=== PATIENT | female | born 1970 | race Caucasian/White ===

== ENCOUNTER 2017-02-04 11:26 | Emergency (ER) | payer BC ==
[2017-02-04] MEDS ORDERED: NS 0.9% 1000 ML* 1,000 ML IV ONE (12:29)
--- NOTE | 2017-02-04 12:35 | ED ---
Abdominal Pain/Female - HPI Summary HPI Summary: Pt here w/ LUQ/LT flank pain x 3 days. Noticed LUQ pain that felt like a "stitch " in her side while walking around [place]. Took a tylenol that night and slept well. Following day, pain remained - no position is comfortable nor worse. Could not sleep well last night d/t pain here. Was doing yard work last week but no acute injury or overuse otherwise. Drinks alot of diet coke. Recent GI bug w/ copious diarrhea x 3 days last week. Last BM yesterday - normal for pt. - History of Current Complaint Chief Complaint: EDGeneral Stated Complaint: LT RIB/BACK PAIN Time Seen by Provider: 02/04/17 11:47 Hx Obtained From: Patient, Family/Prosthetic Technician - Pain Intensity: 6 Allergies/Adverse Reactions: Allergies Allergy/AdvReac Type Severity Reaction Status Date / Time No Known Allergies Allergy Verified 02/04/17 12:36 PMH/Surg Hx/FS Hx/Imm Hx Previously Healthy: Yes Endocrine/Hematology History: Denies: Hx Anticoagulant Therapy, Hx Blood Disorders Cardiovascular History: Denies: Hx Cardiac Arrest, Hx Coronary Artery Disease, Hx Deep Vein Thrombosis, Hx Hypertension, Hx Myocardial Infarction Respiratory History: Denies: Hx Asthma, Hx Chronic Obstructive Pulmonary Disease (COPD), Hx Pneumonia, Hx Pulmonary Embolism GI History: Reports: Hx Gastroesophageal Reflux Disease - gastritis - took PPI and sx resolved Infectious Disease History: No Infectious Disease History: Denies: Traveled Outside the [place] in Last 30 Days - Family History Known Family History: Positive: Cardiac Disease - sister w/ UT in her 40's - Social History Occupation: Unemployed Lives: With Family Alcohol Use: Weekly Hx Substance Use: No Substance Use Type: Reports: None Hx Tobacco Use: No Smoking Status (MU): Never Smoked Tobacco Review of Systems Constitutional: Negative Negative: Fever, Chills, Fatigue ENT: Negative Negative: Dental Pain Cardiovascular: Negative Negative: Palpitations, Chest Pain Respiratory: Negative Negative: Shortness Of Breath, Cough Gastrointestinal: Other - denies hematochezia, dark tarry stools Positive: Abdominal Pain - see HPI. Negative: Vomiting, Diarrhea, Nausea Positive: see HPI, flank pain, hematuria - reported at prior to arrival. Negative: burning, dysuria, discharge, frequency, incontinence, pain, urgency Musculoskeletal: Other - back pain as in HPI Skin: Negative Negative: Rash, Bruising Neurological: Negative Psychological: Normal All Other Systems Reviewed And Are Negative: Yes Physical Exam Triage Information Reviewed: Yes Vital Signs On Initial Exam: Initial Vitals Temp Pulse Resp BP Pulse Ox 97.8 F 98 20 131/64 98 02/04/17 11:29 02/04/17 11:29 02/04/17 11:29 02/04/17 11:29 02/04/17 11:29 Vital Signs Reviewed: Yes Appearance: Positive: Well-Appearing, No Pain Distress, Obese Skin: Positive: Warm, Dry - no erythema, no lesions, no ecchymosis over affected area Head/Face: Positive: Normal Head/Face Inspection Eyes: Positive: Normal, EOMI, Conjunctiva Clear - anicteric sclera ENT: Positive: Hearing grossly normal, Pharynx normal - mucosa moist Neck: Positive: Supple - no gross thyromegaly, Nontender Respiratory/Lung Sounds: Positive: Clear to Auscultation, Breath Sounds Present. Negative: Rales, Rhonchi, Wheezes Cardiovascular: Positive: Normal, RRR, Pulses are Symmetrical in both Upper and Lower Extremities, S1, S2. Negative: Murmur, Rub, Leg Edema Left, Leg Edema Right Abdomen Description: Positive: No Organomegaly, Soft, CVA Tenderness (L) - mild , Other: - LUQ palpation refers pain to Lt flank. Negative: CVA Tenderness (R) , Distended, Hernia @ Bowel Sounds: Positive: Hypoactive Pelvic Exam: Positive: other - deferred Musculoskeletal: Positive: Normal, Strength/ROM Intact. Negative: Pain @ - spinous pp and paracervical mm are NTTP Neurological: Positive: Normal, Sensory/Motor Intact, Alert, Oriented to Person Place, Time, CN Intact II-III Psychiatric: Positive: Normal - [place] Coma Scale Coma Scale Total: 15 Diagnostics - Vital Signs Vital Signs Temp Pulse Resp BP Pulse Ox 02/04/17 11:29 97.8 F 98 20 131/64 98 - Laboratory Result Diagrams: 02/04/17 12:44 02/04/17 12:44 Lab Statement: Any lab studies that have been ordered have been reviewed, and results considered in the medical decision making process. Re-Evaluation - Re-Evaluation First Eval Change: Improved Abdominal Pain Fem Course/Dx - Course Course Of Treatment: Pt presents w/ "pain under Lt rib";LUQ; Lt flank x 3 days. No alleviating nor exacerbating factors - progressively worsening. Denies gretchen chest pain, SOB, HUYNH, cough, fatigue, jaw/arm/neck pain, sweats. Labs reveal eosinophelia. She did report a recent h/o diarrhea x 3 days but this had resolved and she now has formed stools - no abdominal pain outside of LUQ region - eating and drinking well w/o pain. She did not report new foods, water sources, meds, etc and no rash, puritis, sneezing, swelling or throat pain/ swelling. She also does not report nightsweats, weight loss or fatigue. CT ab/ pelvis was ordered to assess for possible renal lithiasis as she has hemturia on U/A - CT is w/o acute pathology but does reveal pleural effusion - discussed CT findings w/ Dr. Vicente - does not feel any findings correlate w/ clinical sx. An ECG and further labs are added to assess for CHF, PE, UT - she is found to have an elevated D-dimer and so CTA of chest is evaluated. This is neg for PE , pneumonia, occult malignant findings. Discussed case with Dr. Pete who agrees all ED avenues have been exhausted and pt may be d/c'd w/ close f/u outpt. Education with pt and about f/u care as they are new to the area - discussed providers and importance of f/u. Also educated on danger s/sx of when to return to ED. 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 NOTE: reviewed w/ pt she does have an incidental findings of Rt ovarian cyst and will f/u w/ PCP. - Diagnoses Provider Diagnoses: Pleural effusion Discharge - Discharge Plan Condition: Stable Disposition: HOME Prescriptions: Cyclobenzaprine TAB* [Flexeril 10 MG TAB*] 10 mg PO TID PRN #15 tab PRN Reason: Pain Patient Education Materials: Pleural Effusion (ED) Referrals: [facility] REFERRAL [Outside] No Primary Care Phys,NOPCP [Primary Care Provider] - Additional Instructions: Rest Deep breathing Try NSAID and muscle relaxers Follow-up with PCP in 1 week - call tomorrow to schedule an appointment *If you develop fever, chills, cough, shortness of breath, worsening back or abdomen pain, vomiting, chest pain, return to ED You may also have early onset of shingles - watch for rash along side - if this presents, seek medical attention [facility]AN for anti-viral medication
[2017-02-04 13:03] LABS: Hematocrit 39 % (35-47); Hemoglobin 13.1 g/dl (12.0-16.0); Mean Corpuscular HGB Conc 34 g/dl (31-36); Mean Corpuscular Hemoglobin 29 pg (27-31); Mean Corpuscular Volume 88 fL (80-97); Mean Platelet Volume 7 um3 (7.4-10.4); Red Blood Count 4.47 10^6/ul (4.0-5.4); Red Cell Distribution Width 14 % (10.5-15)
[2017-02-04 13:18] LABS: ALT 33 U/L (7-52); AST 18 U/L (13-39); Alkaline Phosphatase 77 U/L (34-104); Anion Gap 5 mmol/L (2-11); BUN/Creatinine Ratio 17.3 (8-20); Blood Urea Nitrogen 9 mg/dL (6-24); C Reactive Protein 60.49 mg/L (< 5.00); CO2 Carbon Dioxide 27 mmol/L (22-32); Calcium 9.5 mg/dL (8.6-10.3); Chloride 104 mmol/L (101-111); EGFR African American 162.6 (>60); EGFR Non-African American 126.4 (>60); Globulin 2.8 g/dL (2-4); Glucose 94 mg/dL (70-100); Lipase < 10 U/L (11.0-82.0); Potassium 3.8 mmol/L (3.5-5.0); Sodium 136 mmol/L (133-145); Total Protein 6.8 g/dL (6.4-8.9)
--- NOTE | 2017-02-04 13:36 | RAD ---
CLINICAL HISTORY: Left flank pain COMPARISON: None TECHNIQUE: Noncontrast CT examination of the abdomen and pelvis from the lung bases through the initial tuberosities. FINDINGS: VISUALIZED LUNG BASES: There is a small left pleural effusion. There is a very small amount of right lung base pleural thickening. Lungs are otherwise grossly clear. ABDOMEN AND PELVIS: Evaluation of the solid organs and vasculature is limited without intravenous contrast. The liver, spleen, pancreas and adrenal glands are grossly normal in appearance. The gallbladder is normal. The kidneys are normal in appearance without focal mass, calcification or signs of hydronephrosis. Evaluation of the gastrointestinal tract is limited without oral contrast. The small and large bowel are not distended.The patient's normal appendix is identified in the right lower quadrant with gas in the lumen measuring just under 6 mm in diameter (coronal image 32 and axial image 131).. There is no gross retroperitoneal or mesenteric lymphadenopathy. An intrauterine device is noted at the fundal height endometrium. At the right adnexa there is an approximately 2.8 cm fluid density structure most consistent with an ovary in a woman of this age. Incidentally noted is a left ovarian vein measuring 7 mm in diameter (image 108) the right ovarian vein is an appropriately sized 5 mm. The abdominal aorta and iliac arteries are normal in course and diameter. Degenerative changes include multilevel loss of intervertebral disc height involving the lower thoracic and lumbar spine.There are no sinister bone lesions. IMPRESSION: 1. No renal calculi or signs of obstructive uropathy. 2. Grossly normal appearing gastrointestinal tract within the limitations of a noncontrast enhanced CT examination. 3. 2.8 cm fluid density structure at the right adnexa most consistent with an ovarian follicle in a woman of this age. If clinically warranted this can be confirmed with pelvic ultrasound. 4. Small left pleural effusion of uncertain etiology.
[2017-02-04] MEDS ORDERED: Morphine INJ* 4 MG/ML 1 ML CARPUJECT IV ONE (14:45)
[2017-02-04] MEDS ORDERED: Ondansetron INJ* 2 MG/ML VIAL IV ONE (14:45)
[2017-02-04] MEDS ORDERED: Aspirin Low Dose CHEW TAB* 81 MG PO ONE (15:07)
[2017-02-04] MEDS ORDERED: Iohexol 350* (CONTRAST) 500 ML MDV IV ONE (16:32)
--- NOTE | 2017-02-04 16:58 | RAD ---
HISTORY: Left pleural effusion, chest pain, elevated d-dimer COMPARISONS: None TECHNIQUE: Multiple contiguous axial CT scans of the chest were obtained after the administration of nonionic intravenous contrast, timed to the pulmonary arterial phase of contrast enhancement.. Coronal and sagittal multiplanar reformations are also submitted for review. FINDINGS: NECK AND THYROID: The lower neck and thyroid are unremarkable. CHEST WALL: There is no lower cervical, axillary, or supraclavicular lymphadenopathy by size criteria. HEART AND PERICARDIUM: The heart is unremarkable. AORTA AND PULMONARY VASCULATURE: There is no pulmonary arterial filling defect to suggest pulmonary embolism. There is no linear filling defect within the aorta to suggest aortic dissection. MEDIASTINUM: There is no mediastinal lymphadenopathy by size criteria. OMAR: There is no hilar lymphadenopathy by size criteria. AIRWAY AND ESOPHAGUS: The airway is unremarkable, without endobronchial filling defect. The esophagus is grossly normal. LUNG PARENCHYMA: There is dependent atelectasis bilaterally. PLEURA: There are small bilateral pleural effusions. UPPER ABDOMEN: The upper abdomen is unremarkable. BONES AND SOFT TISSUES: Mild degenerative changes are noted OTHER: None. IMPRESSION: 1. NO PULMONARY ARTERIAL FILLING DEFECT TO SUGGEST PULMONARY EMBOLISM. 2. SMALL BILATERAL PLEURAL EFFUSIONS WITH DEPENDENT ATELECTASIS BILATERALLY.
[2017-02-04 18:38] LABS: Urine Bacteria Absent (Absent); Urine Bilirubin Negative (Negative); Urine Glucose Negative (Negative); Urine Nitrite Negative (Negative)
[2017-02-04] MEDS ORDERED: Cyclobenzaprine TAB* 10 MG PO ONE (19:05)
[2017-02-04 20:18] VITALS: BP 115/48
== END 2017-02-04 19:05 | disposition home or self-care (01) ==
LOC: ED 11:26
DX: J90 Pleural effusion, not elsewhere classified (principal); R10.84 Generalized abdominal pain; R31.9 Hematuria, unspecified
CPT/HCPCS: 36415; 71275; 74176; 80053; 81003; 81015; 83605; 83690; 83735; 83880; 84443; 84484; 84702; 85025; 85379; 86140; 93005; 96374; 96375; 99283; A9270-GY; J2270; J2405; Q9967